=== PATIENT | male | born 1940 | race Caucasian/White ===

== ENCOUNTER 2020-08-27 13:06 | Emergency (ER) | payer MEDICARE ==
[~2020-08-27] VITALS: Ht 177.8 cm; Wt 110.7 kg
[2020-08-27] MEDS ORDERED: TORSE20 PO (14:52)
[2020-08-27] MEDS ORDERED: LEVSOD75 PO (14:52)
[2020-08-27] MEDS ORDERED: HYDCHL25 PO (14:52)
[2020-08-27] MEDS ORDERED: POTCHL20ER PO (14:53)
[2020-08-27] MEDS ORDERED: ALLO100 PO (14:53)
[2020-08-27] MEDS ORDERED: ATOR80 PO (14:53)
[2020-08-27] MEDS ORDERED: VITAMIN D32000 UNI1 PO (14:54)
[2020-08-27] MEDS ORDERED: ESCI10 PO (14:54)
[2020-08-27] MEDS ORDERED: CARVEDILOL12.5 MG PO (14:54)
[2020-08-27] MEDS ORDERED: Aspir 8181 MG PO (14:55)
[2020-08-27] MEDS ORDERED: FOLI400 PO (14:55)
[2020-08-27] MEDS ORDERED: FERSU300 PO (14:55)
[2020-08-27] MEDS ORDERED: Hair, Skin & N1 EACH PO (14:56)
[2020-08-27] MEDS ORDERED: MAGCHL64ER PO (14:56)
[2020-08-27] MEDS ORDERED: FISH OIL 1,2001 EAC7 PO (14:57)
[2020-08-27] MEDS ORDERED: Norco 5-325 Ta1 EACH PO (15:06)
== END 2020-08-27 15:20 | disposition home or self-care (01) ==
LOC: ER 13:06
DX: S43.401A Unspecified sprain of right shoulder joint, initial encounter (principal); Z88.5 Allergy status to narcotic agent; W01.0XXA Fall on same level from slipping, tripping and stumbling without subsequent striking against object, initial encounter
CPT/HCPCS: 73030; 99283-25; A9270-GY

== ENCOUNTER → 2023-02-28 | Outpatient (CLI) | payer MEDICARE ==
[~2023-02-28] MED LIST: ALLO100 PO; ATOR80 PO; Aspir 8181 MG PO; CARVEDILOL12.5 MG PO; ESCI10 PO; FERSU300 PO; FISH OIL 1,2001 EAC7 PO; FOLI400 PO; HYDCHL25 PO; Hair, Skin & N1 EACH PO; LEVSOD75 PO; MAGCHL64ER PO; Norco 5-325 Ta1 EACH PO; POTCHL20ER PO; TORSE20 PO; VITAMIN D32000 UNI1 PO
== END | disposition home or self-care (01) ==
LOC: PLD 11:52 → LAB SHORT 11:52
DX: D48.5 Neoplasm of uncertain behavior of skin (principal)
CPT/HCPCS: 88305

== ENCOUNTER 2023-03-03 15:00 | Emergency (ER) | payer MEDICARE ==
[~2023-03-03] VITALS: Ht 177.8 cm; Wt 104.3 kg
[2023-03-03 15:05] VITALS: BP 170/62
== END 2023-03-03 16:05 | disposition home or self-care (01) ==
LOC: ER 15:00
DX: S51.811A Laceration without foreign body of right forearm, initial encounter (principal); I25.2 Old myocardial infarction; W26.8XXA Contact with other sharp object(s), not elsewhere classified, initial encounter; Z88.5 Allergy status to narcotic agent; Z79.890 Hormone replacement therapy; Z79.899 Other long term (current) drug therapy; Z79.82 Long term (current) use of aspirin; Z95.1 Presence of aortocoronary bypass graft; Z96.653 Presence of artificial knee joint, bilateral
CPT/HCPCS: 12001; 90471; 90714; 99282-25

== ENCOUNTER → 2023-03-11 | Outpatient (CLI) | payer MEDICARE | END | disposition home or self-care (01) | LOC: LAB SHORT 12:27 → PLD 12:27 | DX: C44.41 Basal cell carcinoma of skin of scalp and neck (principal) | CPT/HCPCS: 88305 ==